=== PATIENT | male | born 1965 | race American Indian/Alaskan Native ===

== ENCOUNTER 2016-12-24 09:05 | Day surgery (SDC) | payer OTHER ==
[2016-12-13 10:54] VITALS: BMI 30.8
[2016-12-24] MEDS ORDERED: Propofol 10 mg/ml Inj (20 ML) ONE (09:51)
[2016-12-24] MEDS ORDERED: Sodium Chloride 0.9% 1,000 ML IV SCH (10:30)
[2016-12-24 11:25] VITALS: BP 118/73; RESP 16; TEMP 97.8; O2SAT 100
[2016-12-24 11:32] VITALS: PULSE 73
== END 2016-12-24 11:56 | disposition home or self-care (01) ==
LOC: ENDO 09:05
PROVIDERS: ATTEND Internal Medicine
DX: Z12.11 Encounter for screening for malignant neoplasm of colon (principal); Z86.010 Personal history of colon polyps; K64.8 Other hemorrhoids
CPT/HCPCS: 45378; J2001; J2704; J7040 ×2

== ENCOUNTER 2017-10-10 16:50 | Emergency (ER) | payer BC, OTHER ==
[2017-10-10 17:00] VITALS: BMI 26.9
--- NOTE | 2017-10-10 17:18 | ED PDOC ---
Arrival/HPI - General Time Seen by Provider: 10/10/17 16:59 - History of Present Illness Narrative History of Present Illness (Text): 10/10/17 17:16 52 yo male, no prior hx, presents with palpiations. pt states he was on way to work when symptoms started. pt stats no h/o of svt. no sob, abdominal pain, or othe rcomplaints. upon arrival pt noted to be in svt. adensine 6mg given after unsuccessful vagal , with resolution. Past Medical History - Cardiac Hx Pacemaker: No - Neurological Hx Paralysis: No - Hematological/Oncological Hx Blood Transfusions: No - Musculoskeletal/Rheumatological Hx Musculoskeletal Disorders: No - Psychiatric Hx Emotional Abuse: No Hx Physical Abuse: No Hx Substance Use: No - Anesthesia Hx Anesthesia Reactions: No Hx Malignant Hyperthermia: No - Suicidal Assessment Feels Threatened In Home Enviroment: No Family/Social History - Physician Review Nursing Documentation Reviewed: Yes Family/Social History: Unknown Family HX Hx Alcohol Use: No Hx Substance Use: No Allergies/Home Meds Allergies/Adverse Reactions: Allergies No Known Allergies Allergy (Verified 12/13/16 10:54) Home Medications: Home Meds Medication Instructions Recorded Confirmed Multivit-Minerals/FA/Lycopene [One 1 each PO DAILY 12/13/16 02/08/17 Daily For Men Tablet] [place]-3S/Dha/Epa/Fish Oil [Fish 1 each PO DAILY 12/13/16 02/08/17 Oil [place]-3 Softgel] Review of Systems - Review of Systems Constitutional: Normal Eyes: Normal ENT: Normal Respiratory: Normal Cardiovascular: Palpitations Gastrointestinal: Normal Genitourinary Male: Normal Musculoskeletal: Normal Skin: Normal Neurological: Normal Endocrine: Normal Hemo/Lymphatic: Normal Psychiatric: Normal Physical Exam Vital Signs Temp Pulse Resp BP Pulse Ox 10/10/17 19:18 97 H 18 121/64 100 10/10/17 18:31 102 H 16 123/69 98 10/10/17 17:20 97 H 18 120/70 96 10/10/17 16:50 97.5 F L 190 H 18 99/66 L 96 Temperature: Afebrile Blood Pressure: Normal Pulse: Tachycardic Respiratory Rate: Normal Appearance: Positive for: Well-Appearing, Non-Toxic, Comfortable Pain Distress: None Mental Status: Positive for: Alert and Oriented X 3 - Systems Exam Head: Present: Atraumatic, Normocephalic Pupils: Present: PERRL Extroacular Muscles: Present: EOMI Conjunctiva: Present: Normal Mouth: Present: Moist Mucous Membranes Neck: Present: Normal Range of Motion Respiratory/Chest: Present: Clear to Auscultation, Good Air Exchange. No: Respiratory Distress, Accessory Muscle Use Cardiovascular: Present: Normal S1, S2, Tachycardic. No: Murmurs Abdomen: Present: Normal Bowel Sounds. No: Tenderness, Distention, Peritoneal Signs Back: Present: Normal Inspection Upper Extremity: Present: Normal Inspection. No: Cyanosis, Edema Lower Extremity: Present: Normal Inspection. No: Edema Neurological: Present: GCS=15, CN II-XII Intact, Speech Normal Skin: Present: Warm, Dry, Normal Color. No: Rashes Psychiatric: Present: Alert, Oriented x 3, Normal Insight, Normal Concentration Medical Decision Making ED Course and Treatment: 10/10/17 17:18 svt s/p vagal and adenosine 6mg with resolution - labs pending. - Lab Interpretations Lab Results: 10/10/17 17:05 10/10/17 17:45 Lab Results 10/10/17 17:45: Sodium 141, Potassium 4.1, Chloride 103, Carbon Dioxide 29, Anion Gap 13, BUN 22 H, Creatinine 1.4, Est GFR ( Amer) > 60, Est GFR ( Non-Af Amer) 53, Random Glucose 108, Calcium 9.4, Magnesium 2.2, Total Bilirubin 0.2, AST 86 H, ALT 114 H, Alkaline Phosphatase 74, Lactate Dehydrogenase 672, Total Creatine Kinase 525 H, CK-MB (CK-2) 2.9, CK-MB (CK-2) % Cancelled, Troponin I 0.02, Total Protein 6.9, Albumin 3.9, Globulin 3.0, Albumin/Globulin Ratio 1.3 10/10/17 17:45: PT 10.5, INR 0.92 L, APTT 29.2 10/10/17 17:05: WBC 5.2 D, RBC 5.06, Hgb 15.5, Hct 45.6, MCV 90.1, MCH 30.6, MCHC 34.0, RDW 13.3, Plt Count 250, MPV 9.5, Gran % 40.9 L, Lymph % (Auto) 48.0 H, Sampson % (Auto) 7.3 H, Eos % (Auto) 3.4, Baso % (Auto) 0.4, Gran # 2.14, Lymph # (Auto) 2.5, Sampson # (Auto) 0.4, Eos # (Auto) 0.2, Baso # (Auto) 0.02 - RAD Interpretation Radiology Orders: 10/10/17 17:11 CHEST PORTABLE [RAD] Stat Disposition/Present on Arrival - Present on Arrival Any Indicators Present on Arrival: No - Disposition Have Diagnosis and Disposition been Completed?: Yes Diagnosis: SVT (supraventricular tachycardia) Disposition: HOME/ ROUTINE Disposition Time: 07:00 Condition: STABLE Discharge Instructions (ExitCare): Supraventricular Tachycardia (ED) Additional Instructions: you are declining observation in the hospital. you are able to return to er with any worsening symptoms or concerns. Referrals: [facility], [Non-Staff] - Follow up with primary Lenny Cartagena MD [Staff Provider] - Follow up with primary Forms: [employer] (Bel[place]ian) Critical Care Time - Critical Care Note Total Time (in mins): 45 Documented critical care: time excludes all time spent performing seperately billable procedures.
[2017-10-10 17:23] VITALS: TEMP 97.5
[2017-10-10 17:32] LABS: BASO # 0.02 K/mm3 (0.0-2.0); BASO % 0.4 % (0.0-3.0); EOS # 0.2 (0.0-0.7); EOS % 3.4 % (1.5-5.0); GRAN # 2.14 (1.4-6.5); GRAN % 40.9 % (50.0-68.0); HEMOGLOBIN 15.5 g/dL (14.0-18.0); LYMPH # 2.5 (1.2-3.4); MEAN CELL VOLUME 90.1 fl (80.0-105.0); MEAN CORPUSCULAR HEMOGLOBIN 30.6 pg (25.0-35.0); MEAN PLATELET VOLUME 9.5 fl (7.0-11.0); MONO # 0.4 (0.1-0.6); MONO % 7.3 % (1.0-6.0); RBC 5.06 10^6/uL (3.5-6.1); RED CELL DISTRIBUTION WIDTH 13.3 % (11.5-14.5); WHITE BLOOD COUNT 5.2 10^3/ul (4.5-11.0)
[2017-10-10 17:50] LABS: TROPONIN I 0.02 ng/mL
[2017-10-10 18:07] LABS: ALB/GLOB RATIO 1.3 (1.1-1.8); ALBUMIN 3.9 g/dL (3.0-4.8); ALT/SGPT 114 U/L (7-56); AST/SGOT 86 U/L (17-59); BLOOD UREA NITROGEN 22 mg/dL (7-21); CALCIUM 9.4 mg/dL (8.4-10.5); GFR AFRICAN-AMERICAN > 60; GFR NON-AFRICAN AMERICAN 53; MAGNESIUM 2.2 mg/dL (1.7-2.2)
[2017-10-10 18:10] LABS: INR 0.92 (0.93-1.08); PARTIAL THROMBOPLASTIN TIME 29.2 Seconds (25.1-36.5); PROTHROMBIN TIME 10.5 SECONDS (9.4-12.5)
[2017-10-10 18:53] LABS: CK-MB 2.9 ng/mL (0.0-3.6)
[2017-10-10 19:22] VITALS: BP 121/64; PULSE 97; RESP 18; O2SAT 100
--- NOTE | 2017-10-10 23:44 | CARD ---
APPROVED REPORT EKG Measurement Heart [id number] <Conclusion> Normal sinus rhythm Normal ECG
--- NOTE | 2017-10-10 23:45 | CARD ---
APPROVED REPORT EKG Measurement Heart [id number] <Conclusion> Supraventricular tachycardia Otherwise normal ECG
--- NOTE | 2017-10-11 08:58 | RAD ---
HISTORY: svt COMPARISON: Comparison is MADE TO 11/13/2013 FINDINGS: LUNGS: No active pulmonary disease. PLEURA: No significant pleural effusion identified, no pneumothorax apparent. CARDIOVASCULAR: Normal. OSSEOUS STRUCTURES: No significant abnormalities. VISUALIZED UPPER ABDOMEN: Normal. OTHER FINDINGS: None. IMPRESSION: No active disease.
== END 2017-10-10 19:17 | disposition home or self-care (01) ==
LOC: ED 16:50
DX: I47.1 Supraventricular tachycardia (principal)
CPT/HCPCS: 71045; 80053; 82550; 82553; 83615; 83735; 84484; 85025; 85610; 85730; 93005; 99284; J0153

== ENCOUNTER 2017-12-10 06:09 | Day surgery (SDC) | payer OTHER ==
[2017-12-03 10:31] VITALS: BMI 29.5
[2017-12-10] MEDS ORDERED: Propofol 10 mg/ml Inj (20 ML) ONE (08:08)
[2017-12-10] MEDS ORDERED: Lidocaine 2% Inj (20ml) ONE (08:08)
[2017-12-10] MEDS ORDERED: Sodium Chloride 0.9% 1,000 ML IV SCH (08:45)
[2017-12-10 09:24] VITALS: BP 109/66; PULSE 61; RESP 18; TEMP 97.7; O2SAT 99
== END 2017-12-10 10:00 | disposition home or self-care (01) ==
LOC: ENDO 06:09
PROVIDERS: ATTEND Internal Medicine
DX: Z12.11 Encounter for screening for malignant neoplasm of colon (principal); Z86.010 Personal history of colon polyps; K64.8 Other hemorrhoids
CPT/HCPCS: 45378; J2704; J7040 ×2

== ENCOUNTER 2019-01-10 07:33 | Outpatient (CLI) | payer OTHER | END 2019-01-10 07:34 | disposition home or self-care (01) | LOC: LAB 07:33 ==

== ENCOUNTER 2019-01-14 14:50 | Outpatient (CLI) | payer OTHER | END 2019-01-14 14:51 | disposition home or self-care (01) | LOC: LAB 14:50 ==